=== PATIENT | female | born 1995 | race Caucasian/White ===

== ENCOUNTER 2017-10-08 12:30 | Inpatient (IN) | payer OTHER ==
[~2017-10-08] VITALS: Ht 165.1 cm; Wt 73.5 kg
[~2017-10-08 12:30] MED LIST: PRENATAL1 TAB PO; ZITHROMAX200 MG PO
== END 2017-10-17 12:10 | DRG 775 ==
LOC: LDR 10-15 04:54 → OB/GYN 10-15 16:14
PROC: 10E0XZZ Delivery of Products of Conception, External Approach (ICD-10-PCS; principal; 2017-10-15)
PROC: 0HQ9XZZ Repair Perineum Skin, External Approach (ICD-10-PCS; 2017-10-15)
PROC: 4A1HXCZ Monitoring of Products of Conception, Cardiac Rate, External Approach (ICD-10-PCS; 2017-10-15)
PROC: 4A033R1 Measurement of Arterial Saturation, Peripheral, Percutaneous Approach (ICD-10-PCS; 2017-10-15)
PROC: 10907ZC Drainage of Amniotic Fluid, Therapeutic from Products of Conception, Via Natural or Artificial Opening (ICD-10-PCS; 2017-10-15)
DX: O70.0 First degree perineal laceration during delivery (principal); Z37.0 Single live birth; Z3A.39 39 weeks gestation of pregnancy

== ENCOUNTER 2017-11-29 05:53 | Day surgery (SDC) | payer OTHER | END 2017-11-29 14:45 | disposition home or self-care (01) | LOC: CIR.AMB 05:53 | DX: Z30.2 Encounter for sterilization (principal) ==